=== PATIENT | male | born 1960 | race Caucasian/White ===

== ENCOUNTER 2023-09-09 13:55 | Outpatient (CLI) | payer MEDICAID | END 2023-09-09 23:59 | disposition home or self-care (01) | LOC: RAD 13:55 | PROVIDERS: ATTEND Nurse Practitioner Family | DX: R10.30 Lower abdominal pain, unspecified (principal) | CPT/HCPCS: 76705 ==

== ENCOUNTER 2023-12-31 02:03 | Emergency (ER) | payer MEDICAID ==
[~2023-12-31] VITALS: Ht 175.3 cm; Wt 84.0 kg
[2023-12-31 02:07] VITALS: TEMP 97.7
[2023-12-31 02:26] LABS: BASOPHILS # (AUTO) 0.1 X10'3 (0-0.2); BASOPHILS % (AUTO) 0.6 % (0-1); EOSINOPHILS # (AUTO) 0.3 X10'3 (0-0.9); HEMATOCRIT 38.9 % (42.0-52.0); HEMOGLOBIN 12.6 g/dl (14.0-17.9); LYMPHOCYTES # (AUTO) 4.2 X10'3 (1.1-4.8); LYMPHOCYTES % (AUTO) 42.1 % (21-51); MEAN CORPUSCULAR HEMOGLOBIN 22.1 PG (27.0-31.0); MEAN CORPUSCULAR HGB CONC 32.5 g/dL (33.0-36.5); MONOCYTES # (AUTO) 0.8 X10'3 (0-0.9); MONOCYTES % (AUTO) 8.4 % (2-12); NEUTROPHILS # (AUTO) 4.6 X10'3 (1.8-7.7); NEUTROPHILS % (AUTO) 45.9 % (42-75); PLATELET COUNT 344 X10'3 (140-440); RED BLOOD COUNT 5.72 X10'6 (4.70-6.10); RED CELL DISTRIBUTION WIDTH 17.4 % (11.5-14.5); WHITE BLOOD COUNT 10.1 X10'3 (4.5-11.0)
[2023-12-31 02:41] LABS: ALANINE AMINOTRANSFERASE 26 U/L (12-78); ALBUMIN 3.7 G/DL (3.4-5.0); ALKALINE PHOSPHATASE 57 IU/L (46-116); ANION GAP 9 (8-16); ASPARTATE AMINO TRANSFERASE 18 U/L (10-37); BILIRUBIN,TOTAL 0.9 MG/DL (0.1-1.0); BLOOD UREA NITROGEN 23 MG/DL (7-18); BUN/CREATININE RATIO 20.5 (10.0-20.0); CALCIUM 9.1 MG/DL (8.5-10.1); CHLORIDE 104 MMOL/L (99-107); CREATININE 1.12 MG/DL (0.60-1.10); GLUCOSE 145 MG/DL (70-104); LIPASE 33 U/L (16-77); POTASSIUM 3.8 MMOL/L (3.5-5.1); SODIUM 140 MMOL/L (135-145); TOTAL CARBON DIOXIDE 27.5 MMOL/L (24-32); TOTAL PROTEIN 7.5 G/DL (6.4-8.2); eCRCL 67 ML/MIN; eGFR 66 ML/MIN
[2023-12-31 03:16] LABS: ANISOCYTOSIS 1+; PLATELET ESTIMATE NORMAL
[2023-12-31 03:17] LABS: ACANTHOCYTES FEW; BURR CELLS FEW; ELLIPTOCYTES FEW; MICROCYTOSIS 2+; SCHISTOCYTES FEW; TEAR DROP CELLS FEW
[2023-12-31 03:23] LABS: BILIRUBIN,URINE NEGATIVE (Neg); CLARITY,URINE CLEAR (Clear); COLOR,URINE YELLOW (Yellow); GLUCOSE, URINE NEGATIVE (Neg); KETONES,URINE NEGATIVE (Neg); LEUKOCYTE ESTERASE ,URINE NEGATIVE (Neg); NITRITES, URINE NEGATIVE (Neg); OCCULT BLOOD,URINE MODERATE (Neg); PROTEIN,URINE NEGATIVE (Neg); UROBILINOGEN,URINE 0.2 E.U/dL (0.2-1.0)
[2023-12-31 03:26] LABS: UA COLLECTION TYPE CLN CATCH MIDSTREAM
[2023-12-31 03:30] LABS: BACTERIA,URINE NONE SEEN /HPF (Neg); MUCUS STRANDS NONE SEEN /LPF (Neg); RBC,URINE 20-50 /HPF (0-2); SQUAMOUS EPITHELIAL CELL,UR FEW /LPF (FEW); WBC,URINE 0-4 /HPF (0-4)
[2023-12-31 04:36] VITALS: BP 133/78; PULSE 79; RESP 18; O2SAT 99
== END 2023-12-31 04:38 | disposition home or self-care (01) ==
LOC: ER 02:04
DX: R10.31 Right lower quadrant pain (principal)
CPT/HCPCS: 36415; 80053; 81001; 83690; 85008; 85025; 99283

== ENCOUNTER 2025-05-03 14:52 | Emergency (ER) | payer MEDICARE, MEDICAID ==
[~2025-05-03] VITALS: Ht 175.3 cm; Wt 86.9 kg
[2025-05-03 15:03] VITALS: BP 137/90; PULSE 98; RESP 18; TEMP 98.2; O2SAT 96
--- NOTE | 2025-05-03 16:35 | Physician Documentation ---
History of Present Illness ~ Chief Complaint: Cold, cough & congestion Stated Complaint: COUGH AND CONGESTION Time Seen by MD: 16:09 HPI 64-year-old male presents to the emergency department for evaluate persistent cough and left posterior chest wall discomfort that is worsened with activity. Denies recent fevers, hospitalizations or recent travels. No hemoptysis or night sweats. No prior history of the same. He had no known ill contacts. Reports that he feels himself wheeze at times. He has a nonsmoker and uses cannabis at night only for sleep. He has while alert and oriented stable vital signs of non hypoxic. Medication Reconciliation Allergies: Coded Allergies: No Known Allergies (Unverified , 05/03/25) Review of Systems All Other Systems at this time: Reviewed and Negative ROS See HPI Respiratory: Reports: see HPI Physical Exam Vital Signs: RN Vital Signs have been reviewed: Yes, Temperature: 98.2, Source: Oral, Heart Rate: 98, Respiratory Rate: 18, BP: 137/90, Pulse Oximetry: 96, Weight: 86.900 Oxygen Flow Rate: 0 General Appearance: alert, WD/WN Eyes: normal inspection Nose: normal inspection Oropharynx: normal inspection Neck: non-tender Respiratory: wheezing (Mild decreased forced expiratory volume without acce ssory muscle use) Chest: no accessory muscle use Cardiovascular: normal peripheral pulses Gastrointestinal: normal palpation Extremities: normal range of motion Back: normal inspection Skin: normal color Neurologic: oriented x4 Psychiatric: normal mood/affect Progress Results/Orders Results/Orders Orders - KARMA GALVAN PAC Chest,Single View (05/03/25 16:23) Completed Orders - KARMA GALVAN PAC Chest,Single View (05/03/25 16:23) Vital Signs 05/03/25 15:03 Temp 98.2 Pulse 98 Resp 18 B/P (MAP) 137/90 Pulse Ox 96 O2 Flow Rate 0 Medical Decision Making Additional information obtaine: N/A Findings Examination history is consistent with respiratory infection. Chest x-ray imaging results with the radiologist by basilar atelectasis. This is consistent with the patient's presentation. We will provide Ventolin inhaler, Tessalon Perles and we will cover patient with a azithromycin for early developing respiratory infection. Patient's safely exertional in the emergency department with a staple vital signs. Understands the need for recheck in 1-2 weeks and to return in the emergency department symptoms worsen. Differential Dx:Considerations: Include: Allergic rhinitis, Influenza, Otitis media, Peritonsillar abscess, Pharyngitis-Diphtheria, Pharyngitis-Streptoccal, Pharyngitis-Viral, Pneumonia, Pnuemonitis, Sinusitis, URI, Other Departure Disposition: HOME / SELF CARE / HOMELESS Impression: Primary Impression: Acute respiratory infection Condition: Stable Discharge Instructions: Upper Respiratory Infection, Adult Additional Instructions: Today in the emergency department you re-evaluated indeterminate have early respiratory infection requiring a Ventolin inhaler, Tessalon Perles for cough and azithromycin for suspected early infection as evidenced by the chest x-ray. Begin medications as directed and make follow up appointment with the primary care physician in 1-2 weeks and to return to the emergency department in the interim if symptoms worsen. Thank you for visiting [facility] Emergency Department. Have a happy new year. Referrals: NO PRIMARY CARE PROVIDER (PCP) Prescriptions Azithromycin (Zithromax) 250 Mg Tablet 1 TAB PO DAILY, #6 TAB azithromycin z pack as directed in packaging Prov: KARMA GALVAN 05/03/25 Benzonatate* (Benzonatate*) 100 Mg Capsule 1-2 CAP PO Q6H PRN for cough, #30 CAP Prov: KARMA GALVAN 05/03/25 Albuterol Sulfate (Ventolin Hfa) 90 Mcg Hfa.aer.ad 2 PUFFS INH Q4HPRN PRN for wheezing for 30 Days, #18 GM 0 Refills Prov: KARMA GALVAN 05/03/25 Education Educated: Patient Educated regarding: diagnosis, treatment, prognosis, need for follow up Signature Scribe Signature: . Attestation: KARMA GARCIAS May 03, 2025 16:35
--- NOTE | 2025-05-03 16:37 | RADIOLOGY REPORT ---
CHEST RADIOGRAPH INDICATION: Cough w productive sputum TECHNIQUE: Single frontal view of the chest was obtained. COMPARISON: None FINDINGS: Bibasilar atelectasis. No significant pleural effusion. No pneumothorax. Nonenlarged cardiomediastinal silhouette. IMPRESSION: Bibasilar atelectasis.
[2025-05-03] MEDS ORDERED: BENZ-38 PO (16:46)
[2025-05-03] MEDS ORDERED: AZIT-164 PO (16:46)
[2025-05-03] MEDS ORDERED: ALBU18HF2 INH (16:46)
== END 2025-05-03 16:53 | disposition home or self-care (01) ==
LOC: ER 14:53
DX: J22 Unspecified acute lower respiratory infection (principal); F12.90 Cannabis use, unspecified, uncomplicated
CPT/HCPCS: 71045; 99283